=== PATIENT | male | born 1935 | race Caucasian/White ===

== ENCOUNTER 2018-05-24 12:03 | Emergency (ER) | payer MEDICARE ==
[2018-05-24] MEDS ORDERED: Lidocaine 1% (PF) 30 ML VIAL ONE (12:41)
[2018-05-24] MEDS ORDERED: Triple Antibiotic Oint 1 GM Packet ONE ×2 (13:52→13:59)
--- NOTE | 2018-05-24 14:45 | CT ---
HEAD CT WITHOUT CONTRAST: COMPARISON: 04/22/2018. HISTORY: Injury. Pain. FINDINGS: No parenchymal hemorrhage. No extraaxial hematoma. No midline shift. Basilar cisterns are patent. Age-appropriate atrophy. Cortical montes de oca-white matter differentiation is preserved. Ventricles and sulci are patent and symmetric. Periventricular white matter hypodensities due to chronic small-vessel ischemic change. There is a small laceration with subcu air in the left frontal scalp. Underlying calvarium as well a s the remainder of the calvarium is intact. Adequate aeration of the sinuses and mastoid air cells. IMPRESSION: 1. No intracranial posttraumatic sequelae. 2. Left frontal scalp laceration with subcutaneous air. POS: [facility]
--- NOTE | 2018-05-24 15:00 | RAD ---
ONE VIEW PELVIS: HISTORY: Pain and injury. FINDINGS: Limited evaluation of the bony pelvis due to bowel gas. Grossly unremarkable sacral alae. Iliac win gs appear to be intact. Possible fracture involving the left inferior pubic rami. Limited evaluatio n of the left femoral neck. Contour of both femoral heads is maintained. Mild loss of [id number] hip joint space height. IMPRESSION: Possible left inferior pubic rami fracture. Additional imaging if warranted. POS: [facility]
== END 2018-05-24 14:20 ==
LOC: NAV ERS 12:03
DX: S32.602A Unspecified fracture of left ischium, initial encounter for closed fracture (principal); S01.01XA Laceration without foreign body of scalp, initial encounter; I10 Essential (primary) hypertension; F32.9 Major depressive disorder, single episode, unspecified; N40.0 Benign prostatic hyperplasia without lower urinary tract symptoms; Z79.899 Other long term (current) drug therapy; W18.30XA Fall on same level, unspecified, initial encounter
CPT/HCPCS: 12013; 70450; 72170; J2001

== ENCOUNTER 2023-02-11 14:45 | Outpatient (CLI) | payer MEDICARE | END 2023-02-11 14:46 | disposition home or self-care (01) | LOC: NAV RAD 14:45 | PROVIDERS: ATTEND Family Medicine | DX: R15.9 Full incontinence of feces (principal); R10.9 Unspecified abdominal pain | CPT/HCPCS: 74018 ==

== ENCOUNTER 2024-10-14 12:26 | Inpatient (IN) | payer MEDICARE ==
[2024-10-14] MEDS: Sulfameth/Trimethoprim DS 800-160mg TAB PO SCH (21:25)
[2024-10-14] MEDS: Famotidine 20 MG TAB PO SCH (21:25)
[2024-10-15 06:11] LABS: ALT (SGPT) 34 U/L (Less than 45); AST (SGOT) 38 U/L (11-34); Albumin 2.2 g/dL (3.1-4.5); Alkaline Phosphatase 61 U/L (40-110); Anion Gap 10 mmol/L (10-20); BUN (Urea Nitrogen) 16 mg/dL (8.4-25.7); Bilirubin, Total 0.7 mg/dL (0.3-1.2); Calc. Creatinine Clearance 53 mL/min (70-130); Calcium 8.2 mg/dL (7.8-10.44); Carbon Dioxide 25 mmol/L (23-31); Chloride 107 mmol/L (98-107); Globulin 3.0 g/dL (2.4-3.5); Glucose 96 mg/dL (83-110); Potassium 3.7 mmol/L (3.5-5.1); Sodium 138 mmol/L (136-145)
[2024-10-15 06:12] LABS: #Basophils 0.2 thou/uL (0.0-0.2); #Eosinophils 0.0 thou/uL (0.0-0.7); #Lymphocytes 1.1 thou/uL (1.20-3.40); #Monocytes 1.1 thou/uL (0.11-0.59); #Neutrophils 9.0 thou/uL (1.40-6.50); %Basophils 1.7 % (0.0-1.0); %Eosinophils 0.4 % (0.0-10.0); %Lymphocytes 9.4 % (21.0-51.0); %Monocytes 9.8 % (0.0-10.0); %Neutrophils 78.9 % (42.0-75.0); Hematocrit 33.4 % (42.0-52.0); Hemoglobin 11.2 g/dL (14.0-18.0); Mean Corpuscular Hemoglobin 32.0 pg (27.0-31.0); Mean Corpuscular Volume 95.4 fl (78.0-98.0); Platelet Count 248 10x3/uL (130-400); Red Blood Cell (RBC) Count 3.49 mill/uL (4.70-6.10); White Blood Cell (WBC) Count 11.4 10x3/uL (4.8-10.8)
[2024-10-15] MEDS: Cholecalciferol 1,000 UNITS (25 MCG) TAB PO SCH (08:13)
[2024-10-15] MEDS: BuPROPion XL 150 MG ER.TAB PO SCH (08:14)
[2024-10-15] MEDS: Multivitamin W/ Minerals 1 TAB PO SCH (08:15)
[2024-10-15] MEDS: VIT B COMPLEX COMBO NO 2 PO SCH (08:16)
[2024-10-15] MEDS: Acetaminophen 325 MG TAB PO PRN (14:47)
[2024-10-17 05:44] LABS: #Basophils 0.1 thou/uL (0.0-0.2); #Eosinophils 0.1 thou/uL (0.0-0.7); #Lymphocytes 1.5 thou/uL (1.20-3.40); #Monocytes 0.8 thou/uL (0.11-0.59); #Neutrophils 9.5 thou/uL (1.40-6.50); %Basophils 0.6 % (0.0-1.0); %Eosinophils 0.6 % (0.0-10.0); %Lymphocytes 12.8 % (21.0-51.0); %Monocytes 6.8 % (0.0-10.0); %Neutrophils 79.2 % (42.0-75.0); Hematocrit 30.7 % (42.0-52.0); Hemoglobin 10.2 g/dL (14.0-18.0); Mean Corpuscular Hemoglobin 31.6 pg (27.0-31.0); Mean Corpuscular Volume 94.9 fl (78.0-98.0); Platelet Count 348 10x3/uL (130-400); Red Blood Cell (RBC) Count 3.23 mill/uL (4.70-6.10); White Blood Cell (WBC) Count 11.9 10x3/uL (4.8-10.8)
[2024-10-17 05:55] LABS: Anion Gap 10 mmol/L (10-20); BUN (Urea Nitrogen) 18 mg/dL (8.4-25.7); Calc. Creatinine Clearance 53 mL/min (70-130); Calcium 8.2 mg/dL (7.8-10.44); Carbon Dioxide 24 mmol/L (23-31); Chloride 107 mmol/L (98-107); Glucose 91 mg/dL (83-110); Potassium 4.5 mmol/L (3.5-5.1); Sodium 136 mmol/L (136-145)
[2024-10-18 05:45] LABS: #Basophils 0.1 thou/uL (0.0-0.2); #Eosinophils 0.1 thou/uL (0.0-0.7); #Lymphocytes 1.5 thou/uL (1.20-3.40); #Monocytes 0.7 thou/uL (0.11-0.59); #Neutrophils 8.7 thou/uL (1.40-6.50); %Basophils 0.6 % (0.0-1.0); %Eosinophils 0.5 % (0.0-10.0); %Lymphocytes 13.8 % (21.0-51.0); %Monocytes 6.5 % (0.0-10.0); %Neutrophils 78.6 % (42.0-75.0); Hematocrit 28.5 % (42.0-52.0); Hemoglobin 9.5 g/dL (14.0-18.0); Mean Corpuscular Hemoglobin 31.4 pg (27.0-31.0); Mean Corpuscular Volume 94.1 fl (78.0-98.0); Platelet Count 388 10x3/uL (130-400); Red Blood Cell (RBC) Count 3.03 mill/uL (4.70-6.10); White Blood Cell (WBC) Count 11.1 10x3/uL (4.8-10.8)
[2024-10-21] MEDS: Multivitamin w/Zinc Stress 1 TAB PO SCH (10:34)
[2024-10-21] MEDS ORDERED: Cyanocobalamin (Vitamin B-12) 1,000 MCG TAB PO SCH (11:15)
[2024-10-21] MEDS: Cyanocobalamin (Vitamin B-12) 1,000 MCG TAB PO SCH (12:16)
[2024-10-21] MEDS: Mag-Al Plus 1200/1200/120 MG (30 mL) UDCUP PO PRN (21:24)
[2024-10-22] MEDS: Cyanocobalamin (Vitamin B-12) 1,000 MCG TAB PO SCH (08:06)
[2024-10-22] MEDS ORDERED: Multivitamin w/Zinc Stress 1 TAB PO SCH (09:00)
[2024-10-25 04:51] VITALS: BMI 16.0
[2024-10-26 11:00] VITALS: BMI 16.0
[2024-10-27 08:12] LABS: #Basophils 0.1 thou/uL (0.0-0.2); #Eosinophils 0.1 thou/uL (0.0-0.7); #Lymphocytes 1.6 thou/uL (1.20-3.40); #Monocytes 0.9 thou/uL (0.11-0.59); #Neutrophils 6.3 thou/uL (1.40-6.50); %Basophils 1.2 % (0.0-1.0); %Eosinophils 0.9 % (0.0-10.0); %Lymphocytes 17.7 % (21.0-51.0); %Monocytes 10.0 % (0.0-10.0); %Neutrophils 70.1 % (42.0-75.0); Hematocrit 36.9 % (42.0-52.0); Hemoglobin 11.8 g/dL (14.0-18.0); Mean Corpuscular Hemoglobin 30.4 pg (27.0-31.0); Mean Corpuscular Volume 95.5 fl (78.0-98.0); Platelet Count 513 10x3/uL (130-400); Red Blood Cell (RBC) Count 3.87 mill/uL (4.70-6.10); White Blood Cell (WBC) Count 8.9 10x3/uL (4.8-10.8)
[2024-10-27 08:25] LABS: Anion Gap 12 mmol/L (10-20); BUN (Urea Nitrogen) 18 mg/dL (8.4-25.7); Calc. Creatinine Clearance 48 mL/min (70-130); Calcium 8.9 mg/dL (7.8-10.44); Carbon Dioxide 27 mmol/L (23-31); Chloride 100 mmol/L (98-107); Glucose 119 mg/dL (83-110); Potassium 4.3 mmol/L (3.5-5.1); Sodium 135 mmol/L (136-145)
[2024-10-28] MEDS: Senokot S 8.6-50 MG TAB PO PRN (06:46)
[2024-10-29 08:08] VITALS: BP 124/68; TEMP 97.9
== END 2024-10-29 11:05 | disposition home health service (06) | DRG 945 ==
LOC: NAV ACUTE 15:59
PROVIDERS: ADMIT Family Medicine; ATTEND Family Medicine
PROC: F07Z9ZZ Gait Training/Functional Ambulation Treatment (ICD-10-PCS; principal; 2024-10-14)
DX: R53.1 Weakness (principal); N39.0 Urinary tract infection, site not specified; T83.511A Infection and inflammatory reaction due to indwelling urethral catheter, initial encounter; I10 Essential (primary) hypertension; F32.A Depression, unspecified; R15.9 Full incontinence of feces; M54.30 Sciatica, unspecified side; L89.152 Pressure ulcer of sacral region, stage 2; Z96.0 Presence of urogenital implants; N40.1 Benign prostatic hyperplasia with lower urinary tract symptoms; R33.9 Retention of urine, unspecified; E87.6 Hypokalemia; Z98.890 Other specified postprocedural states; Z79.899 Other long term (current) drug therapy
CPT/HCPCS: 36415; 80048; 80053; 85025; Q0162